=== PATIENT | male | born 1960 | race Caucasian/White ===

== ENCOUNTER 2020-06-26 19:54 | Emergency (ER) | payer OTHER ==
[~2020-06-26] VITALS: Ht 177.8 cm; Wt 80.7 kg
[2020-06-26 21:21] LABS: PLATELET COUNT 163 x10^3mcL (130-400); RED CELL DISTRIBUTION WIDTH 14.4 % (11.5-14.5)
[2020-06-26 21:37] LABS: CALCIUM 8.3 mg/dL (8.5-10.1); CARBON DIOXIDE 26.8 mmol/L (21-32); CHLORIDE SERUM 105 mmol/L (98-107); CREATININE SERUM 0.9 mg/dL (0.7-1.3); GFR1 > 60 mL/min; GLUCOSE SERUM 91 mg/dL (74-106); POTASSIUM SERUM 3.7 mmol/L (3.5-5.1); SODIUM SERUM 141 mmol/L (136-145)
[2020-06-26 21:49] LABS: ALKALINE PHOSPHATASE 94 U/L (46-116); ALT/SGPT 200 U/L (16-63); AST/SGOT 196 U/L (15-37); BILIRUBIN TOTAL 0.4 mg/dL (0.20-1.00); CHOLESTEROL 165 mg/dL (<200); LIPASE 415 IU/L (73-393); MAGNESIUM 1.9 mg/dL (1.8-2.4); T4(THYROXINE) 8.7 ug/dL (4.7-13.3)
[2020-06-26 21:50] LABS: HDL CHOLESTEROL 32 mg/dL (40-60)
[2020-06-26 22:29] LABS: UA SPECIFIC GRAVITY 1.025 (1.005-1.035); microscopic required? YES; urine erythrocyte TRACE (NEGATIVE)
[2020-06-26 22:55] LABS: AMPHETAMINE QUAL UR NONE DETECTED (See below)
[2020-06-27 00:23] VITALS: BP 147/88
== END 2020-06-26 23:30 | disposition home or self-care (01) ==
LOC: ED 19:54
PROVIDERS: Emergency Medicine
DX: G92 Toxic encephalopathy (principal); F10.129 Alcohol abuse with intoxication, unspecified; F12.20 Cannabis dependence, uncomplicated
CPT/HCPCS: 82962; 83880; G0480; J3411; J3475; J3490; J7030; J7042; Q0092